=== PATIENT | male | born 1995 | race African-American/Black ===

== ENCOUNTER 2021-04-06 11:09 | Emergency (ER) | payer MEDICAID, SELFPAY ==
--- NOTE | ~2021-04-06 | XR_ITS ---
EXAMINATION: XR abdomen obstructive series EXAM DATE: 04/06/2021 13:15 INDICATION: Constipation, rectal pain. TECHNIQUE: Frontal upright projection of the upper abdomen, frontal projection of the lower abdomen f or interpretation. There is no prior study for comparison. FINDINGS: Single loop of mildly distended air-filled small bowel, probably transient or ileus. No air -fluid level on the upright projection and no other loops of dilated small bowel. Expected amount of colonic stool. Lung bases unremarkable. Calcifications in the pelvis are believed to be phleboliths. No suspicious soft tissue calcifications identified. There are no osseous abnormalities identified. IMPRESSION: 1. Single loop of mildly distended air-filled small bowel, probably transient or ileus. Reviewed, dictated and finalized at location A.
[2021-04-06 11:12] VITALS: BP 148/91; PULSE 95; RESP 17; TEMP 36.3; O2SAT 100
--- NOTE | 2021-04-06 13:07 | ED.GENADULT ---
HPI - General Adult General Chief complaint: Unspecified Stated complaint: painful bowel movements Time Seen by Provider: 04/06/21 12:01 Source: patient Mode of arrival: ambulatory Limitations: no limitations History of Present Illness HPI narrative: This is a 26 year old male that presents to the ER for rectal pain x 1 week. Reports pain rectal pain with BMs. Reports he is on prescribed pain medication for an injury to the arm. He has been taking a laxative daily. Denies, fever, vomiting, or hematochezia. Related Data Home Medications Medication Instructions Recorded Confirmed gabapentin 300 mg PO TID 04/06/21 04/06/21 oxycodone 5 mg PO Q8-10H PRN 04/06/21 04/06/21 Allergies Allergy/AdvReac Type Severity Reaction Status Date / Time No Known Allergies Allergy Verified 04/06/21 11:15 Review of Systems Review of Systems: Narrative: CONSTITUTIONAL: Denies fever GASTROINTESTINAL: Denies abdominal pain, nausea, vomiting, or diarrhea. All systems reviewed & are unremarkable except as noted in HPI and below PMFSH Past Medical History Medical History (Updated 04/06/21 @ 14:18 by Kay Badillo PA-C) No active medical problems Social History Social History (Updated 04/06/21 @ 13:16 by Kay Badillo PA-C) Substance use: never Gender identity (if verbalized by the patient): Male Exam Narrative: Exam Narrative: GENERAL: Well-appearing, well-nourished, and in no acute distress. HEAD: Normocephalic, atraumatic. EYES: EOMI. CHEST: Clear to auscultation. No respiratory distress. No wheezes rales or rhonchi HEART: Regular rate and rhythm. No murmur heard. Normal peripheral pulses. ABDOMEN: Soft, nontender, nondistended, normal active bowel sounds. EXTREMITIES: Normal range of motion. No edema. SKIN: Warm, dry, no rash. NEURO: No focal deficits. Alert and oriented x3. PSYCH: Normal mood and affect RECTAL: Two external hemorrhoids present, nonthrombosed, no active bleeding. There is also an area boroke-rectally with redness consistent with cellulitis. No central fluctuance to suggest abscess Course Vital Signs Vital signs: Vital Signs Temperature 97.4 F L 04/06/21 11:12 Pulse Rate 95 04/06/21 11:12 Respiratory Rate 17 04/06/21 11:12 Blood Pressure 148/91 H 04/06/21 11:12 Pulse Oximetry 100 04/06/21 11:12 Temperature 97.4 F L 04/06/21 11:12 Pulse Rate 95 04/06/21 11:12 Respiratory Rate 17 04/06/21 11:12 Blood Pressure 148/91 H 04/06/21 11:12 Pulse Oximetry 100 04/06/21 11:12 Medical Decision Making MDM Narrative Medical decision making narrative: Patient presents to the ER for rectal pain present over the last week. He is afebrile and nontoxic appearing. Denies any abdominal pain, nausea or vomiting. Abdominal exam is benign. Is currently taking narcotics for an injury to the left arm. Reports he is able to have bowel movements, he is currently taking a laxative. Abdomen X-ray shows a single loop of mildly distended air-filled small bowel, probably transient or ileus. Patient does have two non-thrombosed external hemorrhoids. Also has an area consistent with cellulitis. No obvious abscess on exam today. Patient will be started on oral antibiotics and was instructed to continue his bowel regimen. He is stable and felt appropriate for further outpatient evaluation. He was given warnings to return to the ER Vital Signs Vital Signs: Vital Signs Temperature 97.4 F L 04/06/21 11:12 Pulse Rate 95 04/06/21 11:12 Respiratory Rate 04/06/21 11:12 Blood Pressure 148/91 H 04/06/21 11:12 Pulse Oximetry 100 04/06/21 11:12 Temperature 97.4 F L 04/06/21 11:12 Pulse Rate 95 04/06/21 11:12 Respiratory Rate 17 04/06/21 11:12 Blood Pressure 148/91 H 04/06/21 11:12 Pulse Oximetry 100 04/06/21 11:12 Imaging Data Radiologist's impression: ITS Impressions Abdomen X-Ray 04/06/21 13:30 IMPRESSION: 1. Single loop of mildly distended air-filled
[2021-04-06 14:43] VITALS: BP 144/79; PULSE 70; RESP 15; O2SAT 98
== END 2021-04-06 14:44 | disposition home or self-care (01) ==
PROVIDERS: Emergency Provider Emergency Medicine
DX: L03.317 Cellulitis of buttock (principal); K64.4 Residual hemorrhoidal skin tags
CPT/HCPCS: 74019; 99283

== ENCOUNTER 2023-03-23 17:22 | Emergency (ER) | payer BC, SELFPAY ==
--- NOTE | ~2023-03-23 | CT_ITS ---
EXAMINATION: CT abdomen pelvis w con DATE: 03/23/2023 19:16 INDICATION: LUQ, LLQ TECHNIQUE: Computed tomography (CT) of the abdomen and pelvis was performed with 100 mL Omnipaque-350 intravenous contrast. Automated exposure control and iterative reconstruction technique were employe d. The dose-length product was 1607.88 mGy-cm. COMPARISON: None. FINDINGS: Lower thorax: Unremarkable Liver: Normal. Biliary/Gallbladder: Gallbladder is normal. No bile duct dilation. Pancreas: No mass or duct dilation. Spleen: Normal. Adrenals:No mass. Kidneys: Punctate calcification in the right kidney. No mass, obstructing stone stone, or hydronephro sis. GI tract: Mild distal esophageal wall edema. No small or large bowel dilation. Normal appendix. Mesentery/Peritoneum: No ascites, mass, or free air. Retroperitoneum: No mass. Pelvis: Pelvic organs are within normal limits. Soft Tissues: Soft tissues and body wall unremarkable. Bones: No acute osseous finding. IMPRESSION: Mild esophagitis. Otherwise unremarkable abdomen and pelvis CT findings. Reviewed, dictated and finalized at location K.
[2023-03-23 17:24] VITALS: BP 168/93; PULSE 109; RESP 18; TEMP 36.7; O2SAT 97
--- NOTE | 2023-03-23 18:26 | ED.ABDPAIN ---
HPI - Abdominal Pain General Chief Complaint: Abdominal Pain <FABIAN Huff Last Filed: 03/24/23 01:14> Stated Complaint: left abdominal pain <FABIAN Huff Last Filed: 03/24/23 01:14> Time Seen by Provider: 03/23/23 18:12 <FABIAN Huff Last Filed: 03/24/23 01:14> Source: patient <FABIAN Huff Last Filed: 03/24/23 01:14> Mode of arrival: ambulatory <FABIAN Huff Last Filed: 03/24/23 01:14> Limitations: no limitations <FABIAN Huff Last Filed: 03/24/23 01:14> History of Present Illness HPI narrative: This is a 28-year-old male with PMH of gastritis who presents to the ED with chief complaint of left lower quadrant pain x1 day. Patient states the pain started yesterday while he was at work. He works as a superintendent construction. Denies any injury. Reports the pain came on in the left lower quadrant and does not radiate. States the pain has been constant since this morning and worse at a 9 out of 10. Denies nausea, vomiting, diarrhea. Last bowel movement this morning. Bowel movements have been normal. No rectal pain. Reports chills last night but no recorded fevers. Denies chest pain, shortness of breath, cough, urinary symptoms, flank pain or back pain. <FABIAN Huff Last Filed: 03/24/23 01:14> Related Data Home Medications: Home Medications Medication Instructions Recorded Confirmed gabapentin 300 mg capsule 300 mg PO TID 04/06/21 04/06/21 oxycodone 5 mg tablet 5 mg PO Q8-10H PRN Pain, Moderate 04/06/21 04/06/21 <FABIAN Huff Last Filed: 03/24/23 01:14> Allergies/Adverse Reactions: Allergies Allergy/AdvReac Type Severity Reaction Status Date / Time No Known Allergies Allergy Verified 03/23/23 17:23 <FABIAN Huff Last Filed: 03/24/23 01:14> Review of Systems Review of Systems: CONSTITUTIONAL: Denies fever, chills, or sweats. EYES: Denies visual changes, redness, or discharge. ENT: Denies rhinorrhea, congestion, sore throat, or otalgia. CARDIOVASCULAR: Denies chest pain, palpitations, or edema. RESPIRATORY: Denies cough or dyspnea. GASTROINTESTINAL: See HPI GENITOURINARY: Denies dysuria or hematuria. SKIN: Denies rash or itching. MUSCULOSKELETAL: Denies back pain, joint pain, or myalgia. NEUROLOGIC: Denies headache, numbness, dizziness, or weakness. PSYCHIATRIC: Denies anxiety or depression. <Esteban Tracy PA-C - Last Filed: 03/24/23 01:14> [facility] Past Medical History Medical History: Medical History (Updated 03/24/23 @ 00:00 by Willie Daemon) No active medical problems <Esteban Tracy PA-C - Last Filed: 03/24/23 01:14> Social History Social History: Social History (Updated 04/06/21 @ 13:16 by Kay Badillo PA-C) Substance use: never Gender identity (if verbalized by the patient): Male <Esteban Tracy PA-C - Last Filed: 03/24/23 01:14> Exam Narrative: GENERAL: Well-appearing, well-nourished, and in no acute distress. HEAD: Normocephalic, atraumatic. EYES: PERRLA and EOMI. ENT: Nares clear, no rhinorrhea or epistaxis. Mucous membranes moist. Oropharynx without tonsillar hypertrophy exudate or other lesions. NECK: Supple. No adenopathy or masses. CHEST: No respiratory distress. Clear to auscultation. No wheezes rales or rhonchi HEART: Regular rate and rhythm. No murmur heard. Normal peripheral pulses. ABDOMEN: Left upper quadrant tenderness with guarding. Left lower quadrant tenderness as well. Negative flank tenderness bilaterally. Soft, nondistended, normal active bowel sounds. EXTREMITIES: Normal range of motion. No edema. SKIN: Warm, dry, no rash. NEURO: Alert and oriented x3. No focal deficits. PSYCH: Normal mood and affect. <Esteban Tracy PA-C - Last Filed: 03/24/23 01:14> Course AUTOMATED PROCESS OPERATOR/PA Physician Supervision This is a was performed by both a physician and an APC. I performed all aspects of the MDM as documented w
[2023-03-23] MEDS: ONDANSETRON INJ 4 MG/2 ML VIAL IV PUSH (18:39)
[2023-03-23] MEDS: SODIUM CHLORIDE 0.9% IV 1,000 ML 999 ML IV CONT (18:39)
[2023-03-23] MEDS: MORPHINE SULFATE (*CRX) 4 MG/ML INJ IV PUSH (18:40)
[2023-03-23 18:49] LABS: Basophils Absolute Auto 0.1 K/mm3 (0.0-0.1); Basophils Percent Auto 0.4 % (0.2-1.2); Eosinophils Absolute Auto 0.1 K/mm3 (0-0.3); Eosinophils Percent Auto 0.9 % (0-4.4); Hematocrit 42.1 % (42.0-52.0); Hemoglobin 13.6 g/dL (14.0-18.0); Immature Granulocyte Absolute 0.04 K/mm3 (0.00-0.031); Immature Granulocyte Percent A 0.3 % (0-0.5); Lymphocytes Absolute Auto 2.01 K/mm3 (0.9-3.2); Lymphocytes Percent Auto 14.2 % (18.3-44.2); Mean Corpuscular HGB Conc 32.3 g/dl (32-36); Mean Corpuscular Hemoglobin 27.6 pg (26-34); Mean Corpuscular Volume 85.6 fl (80-100); Mean Platelet Volume 11.8 fl (7.4-10.4); Monocytes Absolute Auto 0.8 K/mm3 (0.1-0.6); Monocytes Percent Auto 5.9 % (2.6-8.5); Neutrophils Absolute Auto 11.1 K/mm3 (1.3-6.7); Neutrophils Percent Auto 78.3 % (45.5-73.1); Platelet Count Result 275 k/mm3 (150-375); Red Blood Count 4.92 M/mm3 (4.6-6.20); Red Cell Distribution Width 13.1 % (11.5-14.5); White Blood Count 14.2 K/mm3 (4.5-10.0)
[2023-03-23 19:01] LABS: Alanine Aminotransferase 35 U/L (6-50); Albumin Level 4.2 g/dL (3.5-5.1); Alkaline Phosphatase 89 U/L (38-126); Anion Gap 5 mmol/L (8-16); Aspartate Amino Transferase 32 U/L (17-59); Bilirubin,Total 0.9 mg/dL (0.2-1.3); Blood Urea Nitrogen 9 mg/dL (9-20); Calcium 8.9 mg/dL (8.4-10.2); Carbon Dioxide 30 mmol/L (22-30); Chloride 104 mmol/L (98-107); Estimated Glomerular Filt Rate > 60; Glucose 86 mg/dL (65-110); Lactic Acid Reflex 0.9 mmol/L (0.7-2.0); Lipase 68 U/L (23-300); Potassium 3.6 mmol/L (3.4-5.0); Sodium 139 mmol/L (137-145)
[2023-03-23 20:10] LABS: Appearance Urine Clear (Clear); Bacteria Urine None Seen /hpf; Bilirubin Urine Negative (Negative); Blood Urine Negative (Negative); Color Urine Yellow (Yellow); Glucose Urine UA Negative (Negative); Ketones Urine Negative (Negative); Leukocyte Esterase Ur 2+ LEU/UL (Negative); Nitrate Urine Negative (Negative); Non Pathogenic Casts 0-2; Protein Urine Negative (Negative); RBC Urine 0-2 /hpf (0-2); Specific Grav Ur 1.034 (1.001-1.035); Squamous Epithelial Cell Urine None seen /hpf (Few); WBC Urine 51-100 /hpf
[2023-03-23 20:13] VITALS: BP 158/94; PULSE 72; RESP 16; O2SAT 100
[2023-03-23 20:20] LABS: Add Urine Microscopic? YES
[2023-03-23] MEDS: cefTRIAXone 1 GM VIAL 0.5 GM IM (21:17)
[2023-03-23] MEDS: DOXYCYCLINE HYCLATE 100 MG TABLET PO (21:17)
[2023-03-23] MEDS: LIDOCAINE HCL 1% LOCAL INJ 10 ML VIAL (21:19)
[2023-03-23 21:24] VITALS: BP 160/94; PULSE 80; RESP 14; O2SAT 100
== END 2023-03-23 21:25 | disposition home or self-care (01) ==
PROVIDERS: Emergency Provider Physician Assistant
DX: N39.0 Urinary tract infection, site not specified (principal); K20.90 Esophagitis, unspecified without bleeding
CPT/HCPCS: 36415; 74177; 80053; 81001; 83605; 83690; 85025; 87086; 96361; 96372; 96374; 96375; 99284; A9270; J0696; J2270; J2405; J7030; Q9967

== ENCOUNTER 2024-09-21 09:24 | Emergency (ER) | payer BC, SELFPAY ==
--- NOTE | ~2024-09-21 | CT_ITS ---
EXAMINATION: CT soft tissue neck w con DATE: 09/21/2024 10:08 INDICATION: Neck swelling. Throat swelling. TECHNIQUE: Computed tomography (CT) of the neck was performed with 75 mL Omnipaque-350 intravenous co ntrast. Automated exposure control and iterative reconstruction technique were employed. The dose-jorje gth product was 614.09 mGy-cm. COMPARISON: None FINDINGS: The palatine tonsils are enlarged. The epiglottis is normal. The adenoids are enlarged. The re are no pathologically enlarged lymph nodes. There is mild mucosal thickening in the paranasal sinu ses. The orbits are normal. The mastoid air cells are normal. There is mild cervical spondylosis. The re is a 4 mm subcutaneous radiopaque foreign body in right supraclavicular region. IMPRESSION: 1. Enlarged palatine tonsils and adenoids, consistent with inflammation. No abscess. Reviewed, dictated and finalized at location B. IMPRESSION: 1. Enlarged palatine tonsils and adenoids, consistent with inflammation. No abs cess.
[2024-09-21 09:30] VITALS: BP 163/87; PULSE 104; RESP 18; TEMP 36.1; O2SAT 100
[2024-09-21 09:55] LABS: Basophils Absolute Auto 0.1 K/mm3 (0.0-0.1); Basophils Percent Auto 0.5 % (0.2-1.2); Eosinophils Absolute Auto 0.1 K/mm3 (0-0.3); Eosinophils Percent Auto 0.4 % (0-4.4); Hematocrit 41.7 % (42.0-52.0); Hemoglobin 13.1 g/dL (14.0-18.0); Immature Granulocyte Absolute 0.04 K/mm3 (0.00-0.031); Immature Granulocyte Percent A 0.3 % (0-0.5); Lymphocytes Absolute Auto 1.69 K/mm3 (0.9-3.2); Mean Corpuscular HGB Conc 31.4 g/dl (32-36); Mean Corpuscular Hemoglobin 27.5 pg (26-34); Mean Corpuscular Volume 87.6 fl (80-100); Mean Platelet Volume 11.5 fl (7.4-10.4); Monocytes Absolute Auto 1.1 K/mm3 (0.1-0.6); Monocytes Percent Auto 8.5 % (2.6-8.5); Neutrophils Absolute Auto 10.1 K/mm3 (1.3-6.7); Neutrophils Percent Auto 77.3 % (45.5-73.1); Platelet Count Result 244 k/mm3 (150-375); Red Blood Count 4.76 M/mm3 (4.6-6.20); Red Cell Distribution Width 12.8 % (11.5-14.5)
[2024-09-21 10:02] LABS: Estimated CRCL calculation 123 ml/min; Estimated Glomerular Filt Rate > 60
[2024-09-21 10:10] LABS: Anion Gap 9 mmol/L (4-12); Blood Urea Nitrogen 9 mg/dL (9-20); CRP 1.6 mg/dL (<1.0); Calcium 8.7 mg/dL (8.4-10.2); Carbon Dioxide 29 mmol/L (22-30); Chloride 101 mmol/L (98-107); Estimated CRCL calculation 144 ml/min; Estimated Glomerular Filt Rate > 60; Glucose 112 mg/dL (65-110); Potassium 3.8 mmol/L (3.4-5.0); Sodium 139 mmol/L (137-145)
--- NOTE | 2024-09-21 10:27 | ED.URI ---
HPI - URI/Sore Throat General Chief Complaint: Neck Pain/Injury Stated Complaint: neck pain Time Seen by Provider: 09/21/24 10:00 Source: patient Mode of arrival: ambulatory Limitations: no limitations History of Present Illness HPI Narrative: This is a 29-year-old male that presents to the emergency department for sore throat. Ongoing since last night. Reports associated swelling of his throat. Reports tender lymphadenopathy. Denies fevers. Related Data Home Medications Medication Instructions Recorded Confirmed gabapentin 300 mg capsule 300 mg PO TID 04/06/21 04/06/21 oxycodone 5 mg tablet 5 mg PO Q8-10H PRN Pain, Moderate 04/06/21 04/06/21 Allergies Allergy/AdvReac Type Severity Reaction Status Date / Time No Known Allergies Allergy Verified 03/23/23 17:23 Review of Systems Review of Systems: CONSTITUTIONAL: Denies fever ENT: Reports sore throat RESPIRATORY: Denies dyspnea. All systems reviewed & are unremarkable except as noted in HPI and below PMFSH Past Medical History Medical History (Updated 09/21/24 @ 14:14 by Kay Badillo PA-C) No active medical problems Social History Social History (Updated 04/06/21 @ 13:16 by Kay Badillo PA-C) Substance use: never Gender identity (if verbalized by the patient): Male Exam Narrative: GENERAL: Well-appearing, well-nourished, and in no acute distress. HEAD: Normocephalic, atraumatic. EYES: EOMI. ENT: Nares clear, no rhinorrhea or epistaxis. Mucous membranes moist. Oropharynx with tonsillar hypertrophy and erythema, no exudate or other lesions. No trismus NECK: Supple. Tender anterior cervical adenopathy CHEST: Clear to auscultation. No respiratory distress. No wheezes rales or rhonchi HEART: Regular rate and rhythm. No murmur heard. Normal peripheral pulses. EXTREMITIES: Normal range of motion. No edema. SKIN: Warm, dry, no rash. NEURO: No focal deficits. Alert and oriented x3. PSYCH: Normal mood and affect Course Course Emergency Course: Patient with improvement after IV steroid, Toradol, antibiotic. Reports he is ready for discharge Vital Signs Vital signs: Vital Signs Temperature 97.0 F L 09/21/24 09:30 Pulse Rate 104 H 09/21/24 09:30 Respiratory Rate 18 09/21/24 09:30 Blood Pressure 163/87 H 09/21/24 09:30 Pulse Oximetry 100 09/21/24 09:30 Oxygen Delivery Room Air 09/21/24 09:30 Temperature 97.0 F L 09/21/24 09:30 Pulse Rate 104 H 09/21/24 09:30 Respiratory Rate 18 09/21/24 09:30 Blood Pressure 163/87 H 09/21/24 09:30 Pulse Oximetry 100 09/21/24 09:30 Oxygen Delivery Room Air 09/21/24 09:30 MDM - URI/Sore Throat Lab Data Attestation: I reviewed the patient's lab results. 09/21/24 09:46 09/21/24 10:01 Labs: Lab Results 09/21/24 09/21/24 09/21/24 Range/Units 09:46 10:01 10:42 WBC 13.0 H (4.5-10.0) K/mm3 RBC 4.76 (4.6-6.20) M/mm3 Hgb 13.1 L (14.0-18.0) g/dL Hct 41.7 L (42.0-52.0) % MCV 87.6 (80-100) fl MCH 27.5 (26-34) pg MCHC 31.4 L (32-36) g/dl RDW 12.8 (11.5-14.5) % Plt Count 244 (150-375) k/mm3 MPV 11.5 H (7.4-10.4) fl Immature Gran % (Auto) 0.3 (0-0.5) % Neut % (Auto) 77.3 H (45.5-73.1) % Lymph % (Auto) 13.0 L (18.3-44.2) % Towner % (Auto) 8.5 (2.6-8.5) % Eos % (Auto) 0.4 (0-4.4) % Baso % (Auto) 0.5 (0.2-1.2) % Lymph # (Auto) 1.69 (0.9-3.2) K/mm3 Towner # (Auto) 1.1 H (0.1-0.6) K/mm3 Eos # (Auto) 0.1 (0-0.3) K/mm3 Baso # (Auto) 0.1 (0.0-0.1) K/mm3 Abs Immat Gran (auto) 0.04 H (0.00-0.031) K/mm3 Absolute Neuts (auto) 10.1 H (1.3-6.7) K/mm3 Absolute Nucleated RBC 0.000 (0.0-0.012) K/mm3 Nucleated RBC % 0.0 (0.0-0.2) % ESR 12 (0-20) mm/hr Sodium 139 (137-145) mmol/L Potassium 3.8 (3.4-5.0) mmol/L Chloride 101 (98-107) mmol/L Carbon Dioxide 29 (22-30) mmol/L Anion Gap 9 (4-12) mmol/L BUN 9 (9-20) mg/dL Creatinine 1.10 1.30 (0.7-1.3) mg/dL Estim Creat Clear Calc 144 123 ml/min Estimated GFR > 60 > 60 (59 - ) Glucose 112 H (65-110) mg/dL Calcium 8.7 (8.4-10.2) mg/dL C-Reactive Protein 1.6 H (<1.0) mg/dL Group A Strep (PCR) Not detected (Negative) Imaging Data Radiologist's impression: ITS Impressions Soft Tissue Neck CT 09/21/24 10:11 IMPRESSION: 1. Enlarged palatine tonsils and adenoids, consistent with inflammation. No abscess. Critical Care Time Critical Care Time Critical Care Time: No Discharge Plan Discharge Clinical Impression: Acute tonsillitis Qualifiers: Pharyngitis/tonsillitis etiology: unspecified etiology Qualified Code(s): J03.90 - Acute tonsillitis, unspecified Patient Disposition: Home, Self-Care Condition: Improved Instructions: Antibiotic Form, Tonsillitis (ED) Additional Instructions: Return to the emergency department for worsening symptoms, or any other concerns Remain well-hydrated, get plenty of rest. Take Tylenol or Motrin [id number] for pain as needed. Flonase for nasal congestion. Zyrtec for runny nose. Lozenges or Chloraseptic spray for sore throat. Take oral antibiotics as prescribed. Take steroid taper as prescribed Follow up with primary care doctor Prescriptions: New amoxicillin-pot clavulanate 875-125 mg tablet 1 tablet PO Q12H 10 Days Qty: 20 0RF methylprednisolone 4 mg tablets,dose pack See Rx Instructions .ROUTE .COMPLEX Qty: 21 0RF Rx Instructions: orally per package directions No Action gabapentin 300 mg capsule 300 mg PO TID oxycodone 5 mg tablet 5 mg PO Q8-10H PRN (Reason: Pain, Moderate) amoxicillin-pot clavulanate 875-125 mg tablet 1 tablet PO Q12H 7 Days Qty: 14 0RF Follow-up/Referrals: Pilo Prieto DO [Physician] - PHYSICIAN,SQL DATABASE ADMINISTRATOR [Non-Staff] -
[2024-09-21] MEDS: dexAMETHasone SOD PHOS INJ 10 MG/ML 1 ML VIAL IV PUSH (10:34)
[2024-09-21] MEDS: diphenhydrAMINE HCl INJ 50 MG/ML VIAL 25 MG IV PUSH (10:35)
[2024-09-21] MEDS: KETOROLAC 15 MG/ML VIAL (*BKC) IV PUSH (10:35)
[2024-09-21] MEDS: FAMOTIDINE 20 MG/2 ML VIAL IV PUSH (10:35)
[2024-09-21 10:40] LABS: Erythrocyte Sedimentation Rate 12 mm/hr (0-20)
[2024-09-21] MEDS: AMPICILLIN SULB 3 GM/NS 100 ML 3 GM/100 ML VIAL IVPB (10:44)
[2024-09-21 11:10] LABS: Strep Group A RT-PCR NOT DETECTED (Negative)
== END 2024-09-21 14:22 | disposition home or self-care (01) ==
PROVIDERS: Emergency Provider Physician Assistant
DX: J03.90 Acute tonsillitis, unspecified (principal)
CPT/HCPCS: 36415; 70491; 80048; 85025; 85652; 86140; 87651; 96365; 96375; 99284; J0295; J1100; J1200; J1885; Q9967